=== PATIENT | male | born 2000 | race Caucasian/White ===

== ENCOUNTER 2019-10-16 14:55 | Emergency (ER) | payer OTHER ==
[2019-10-16 14:59] VITALS: RESP 18; TEMP 98.3
[2019-10-16] MEDS ORDERED: ONDANSETRON ODT 4 MG TAB PO STA (15:46)
[2019-10-16] MEDS ORDERED: PSEUDOEPHEDRINE 30 MG TAB PO STA (15:47)
--- NOTE | 2019-10-16 16:14 | ED ---
General Adult HPI - General Chief complaint: Shortness of Breath Stated complaint: nausea/vomiting Time Seen by Provider: 10/16/19 15:28 Source: patient Mode of arrival: ambulatory Limitations: no limitations - History of Present Illness Initial comments: 19-year-old male patient presents to the emergency department today for evaluation of nasal congestion and difficulty breathing. Patient states that he has had nasal congestion for the last 2-3 days. States when he lies flat he feels like it is hard to breathe and he has to move around. Denies any cough with this. Patient states the last couple days he did have some nausea and vomiting with that has resolved. Denies any abdominal pain or diarrhea. Denies any hematochezia, melena, hematemesis. Denies fever or chills with this. States he did take ALLERGY medication without relief so he stopped taking it. States he believes he did have a fever over the last couple of days but has resolved. Denies any history of medical problems. Denies being exposed to anyone known to have coronavirus. States he does smoke cigarettes. Denies alcohol or drug use. Patient denies any recent rash, cough, abdominal pain, back pain, numbness, tingling, dizziness, weakness, hematuria, dysuria, urinary urgency, urinary frequency, headache, visual changes, or any other complaints. - Related Data Home Medications Medication Instructions Recorded Confirmed Escitalopram [Lexapro] 5 mg PO DAILY 04/26/16 04/26/16 Previous Rx's Medication Instructions Recorded Pseudoephedrine 12Hr [Sudafed 12 120 mg PO Q12H #10 tablet.er 10/16/19 Hour] Allergies Allergy/AdvReac Type Severity Reaction Status Date / Time crayfish Allergy Unknown Verified 10/16/19 14:58 Review of Systems ROS Statement: Those systems with pertinent positive or pertinent negative responses have been documented in the HPI. ROS Other: All systems not noted in ROS Statement are negative. Past Medical History Past Medical History: No Reported History History of Any Multi-Drug Resistant Organisms: None Reported Past Surgical History: Orthopedic Surgery Additional Past Surgical History / Comment(s): plate in left arm. Past Psychological History: Bipolar Smoking Status: Current every day smoker Past Alcohol Use History: None Reported Past Drug Use History: None Reported General Exam Limitations: no limitations General appearance: alert, in no apparent distress, other (This is a well- developed, well-nourished adult male patient in no acute distress. Vital signs upon presentation are temperature 98.3F, pulse 74, respirations 18, blood pressure 130/83, pulse ox 97% on room air.) Eye exam: Present: normal appearance, PERRL, EOMI. Absent: scleral icterus, conjunctival injection, periorbital swelling ENT exam: Present: normal exam, normal oropharynx, mucous membranes moist, TM's normal bilaterally Respiratory exam: Present: normal lung sounds bilaterally. Absent: respiratory distress, wheezes, rales, rhonchi, stridor Cardiovascular Exam: Present: regular rate, normal rhythm, normal heart sounds. Absent: systolic murmur, diastolic murmur, rubs, gallop, clicks GI/Abdominal exam: Present: soft, normal bowel sounds. Absent: distended, tenderness, guarding, rebound, rigid Neurological exam: Present: alert, oriented X3, CN II-XII intact Psychiatric exam: Present: normal affect, normal mood Skin exam: Present: warm, dry, intact, normal color. Absent: rash Course Vital Signs 10/16/19 14:55 Temperature 98.3 F Pulse Rate 74 Respiratory 18 Rate Blood Pressure 130/83 O2 Sat by Pulse 97 Oximetry Medical Decision Making - Medical Decision Making 19-year-old male patient presented to the emergency department today for evaluation of nasal congestion and difficulty breathing. States when he lies down it feels like it is more difficult to breathe and he has to move around. Physical examination is unremarkable. His have obvious nasal congestion. No pharyngeal erythema or tonsillar hypertrophy. Lung sounds are clear to auscultation with good air movement. Chest x-ray shows no acute cardiopulmonary process. Since he did have nausea vomiting and diarrhea for the last few days in addition to upper respiratory symptoms we'll send coronavirus swab which results in about 12 hours. He will be given prescription for Sudafed which did successfully treating his nasal congestion here. He'll be discharged to follow up with his primary care physician for recheck in 1-2 days. Return parameters are discussed in detail. He verbalizes understanding and agrees with this plan. - Radiology Data Radiology results: report reviewed, image reviewed Two-view x-ray of the chest is obtained. Report was reviewed in its entirety. Impression by Dr. Bowman shows no acute cardio pulmonary process. Disposition Clinical Impression: Acute rhinosinusitis Disposition: HOME SELF-CARE Condition: Good Instructions (If sedation given, give patient instructions): Sinusitis (ED) Additional Instructions: Take medications as directed. Await coronavirus results. Follow up with her primary care physician for recheck in 1-2 days. Return to the emergency department immediately for any new, worsening, or concerning symptoms. Prescriptions: Pseudoephedrine 12Hr [Sudafed 12 Hour] 120 mg PO Q12H #10 tablet.er Is patient prescribed a controlled substance at d/c from ED?: No Referrals: None,Stated [Primary Care Provider] - 1-2 days Time of Disposition: 16:46
--- NOTE | 2019-10-16 16:24 | XR ---
EXAMINATION TYPE: XR chest 2V DATE OF EXAM: 10/16/2019 COMPARISON: None HISTORY: 19 year-old male shortness of breath, dyspnea TECHNIQUE: PA and lateral views FINDINGS: The cardiomediastinal silhouette, aorta, and pulmonary vasculature are within normal limits. Lungs an d pleural spaces are clear. IMPRESSION: No acute cardiopulmonary process.
[2019-10-16 18:09] VITALS: BP 124/74; PULSE 70
== END 2019-10-16 17:57 | disposition home or self-care (01) ==
LOC: EC 14:55
DX: J01.90 Acute sinusitis, unspecified (principal); R11.2 Nausea with vomiting, unspecified; R19.7 Diarrhea, unspecified; R06.02 Shortness of breath; F31.9 Bipolar disorder, unspecified; F17.210 Nicotine dependence, cigarettes, uncomplicated; Z79.899 Other long term (current) drug therapy; Z20.828 Contact with and (suspected) exposure to other viral communicable diseases
CPT/HCPCS: 71046; 99285; U0003

== ENCOUNTER 2020-05-22 07:19 | Emergency (ER) | payer OTHER ==
[2020-05-22 07:27] VITALS: RESP 18; TEMP 98
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
[2020-05-22] MEDS: DIPH,PERTUS(ACELL)TETVAC-LF 0.5 ML VIAL IM ONE (07:38)
[2020-05-22 07:39] LABS: Basophils # (A) 0.1 k/uL (0-0.2); Basophils % (A) 1 %; Eosinophils # (A) 0.3 k/uL (0-0.7); Eosinophils % (A) 3 %; HGB 14.8 gm/dL (13.0-17.5); Lymphocytes # (A) 4.5 k/uL (1.0-4.8); Lymphocytes % (A) 45 %; MCH 30.9 pg (25.0-35.0); MCHC 34.3 g/dL (31.0-37.0); MCV 90.1 fL (80.0-100.0); Mean Platelet Volume 7.5; Monocytes # (A) 0.4 k/uL (0-1.0); Monocytes % (A) 4 %; Neutrophils # (A) 4.5 k/uL (1.3-7.7); Neutrophils % (A) 45 %; Platelet Count 339 k/uL (150-450); RBC 4.77 m/uL (4.30-5.90); RDW 12.3 % (11.5-15.5)
[2020-05-22] MEDS: ceFAZolin 1,000 MG VIAL (IM USE) IM STA (07:39)
[2020-05-22] MEDS: ONDANSETRON 4 MG/2 ML VIAL IVP STA (07:39)
[2020-05-22] MEDS: LIDOCAINE 1%-EPI 1:100,000 20 ML VIAL SQ ONE (07:39)
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
[2020-05-22 07:47] LABS: ALT 14 U/L (4-49); AST 21 U/L (17-59); African American GFR (CKD) >90 (>60 ml/min/1.73 sqM); Albumin 4.5 g/dL (3.5-5.0); Alkaline Phosphatase 72 U/L (38-126); Anion Gap 10 mmol/L; Blood Urea Nitrogen 27 mg/dL (9-20); Calcium 9.7 mg/dL (8.4-10.2); Carbon Dioxide 24 mmol/L (22-30); Chloride 106 mmol/L (98-107); Glucose 149 mg/dL (74-99); Non-African American GFR(CKD) >90 (>60 ml/min/1.73 sqM); Sodium 140 mmol/L (137-145); Total Bilirubin 0.4 mg/dL (0.2-1.3); Total Protein 7.4 g/dL (6.3-8.2)
[2020-05-22 08:16] VITALS: BP 113/71; PULSE 60
== END 2020-05-22 08:16 | disposition home or self-care (01) ==
LOC: EC 07:19
DX: S61.511A Laceration without foreign body of right wrist, initial encounter (principal); Z23 Encounter for immunization; R11.2 Nausea with vomiting, unspecified; Z91.013 Allergy to seafood; F17.200 Nicotine dependence, unspecified, uncomplicated; Z98.890 Other specified postprocedural states; W25.XXXA Contact with sharp glass, initial encounter; Y93.89 Activity, other specified; Y92.009 Unspecified place in unspecified non-institutional (private) residence as the place of occurrence of the external cause
CPT/HCPCS: 36415; 80053; 85025; 73110; 90715; 99284; 96374; 90471; 96372; 12002; J2405; J0690

== ENCOUNTER 2021-06-28 19:30 | Emergency (ER) | payer OTHER ==
[2021-06-28 19:44] VITALS: RESP 18; TEMP 98.4
[2021-06-28] MEDS ORDERED: IBUPROFEN 600 MG TAB PO STA (21:34)
[2021-06-28] MEDS ORDERED: LIDOCAINE 5% PATCH TOPICAL STA (21:35)
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
[2021-06-28] MEDS ORDERED: ACET/COD 300 MG/30 MG STARTER PACK 6 TAB BTL PO STA (22:25)
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
[2021-06-28 22:45] VITALS: BP 118/84; PULSE 79
== END 2021-06-28 22:46 | disposition home or self-care (01) ==
LOC: EC 19:30
DX: S22.32XA Fracture of one rib, left side, initial encounter for closed fracture (principal); F31.9 Bipolar disorder, unspecified; F17.200 Nicotine dependence, unspecified, uncomplicated; F12.90 Cannabis use, unspecified, uncomplicated; V43.52XA Car driver injured in collision with other type car in traffic accident, initial encounter; Y92.410 Unspecified street and highway as the place of occurrence of the external cause
CPT/HCPCS: 99284